=== PATIENT | female | born 1990 | race Caucasian/White ===

== ENCOUNTER → 2018-08-30 | Outpatient (CLI) | payer MEDICAID | LOC: OD 16:03 | PROVIDERS: ATTEND Nurse Practitioner Family | DX: N91.2 Amenorrhea, unspecified (principal) | CPT/HCPCS: 36415; 84702 ==

== ENCOUNTER 2018-11-03 05:14 | Emergency (ER) | payer BC, MEDICAID ==
[2018-11-03 06:22] LABS: A TYPE INFLUENZA AG NEGATIVE (NEGATIVE); B INFLUENZA AG NEGATIVE (NEGATIVE)
[2018-11-03] MEDS ORDERED: PENICILLIN G BENZATHINE 1.2 MILLION UNIT/2 ML DISP.SYRIN IM ONE (06:40)
--- NOTE | 2018-11-03 06:43 | RADIOLOGY REPORT (SQ) ---
EXAM DESCRIPTION: X-ray two view chest. CLINICAL HISTORY: 28 years Female, chest tightness COMPARISON: None TECHNIQUE: PA and Lateral views of the chest performed on 11/03/2018 at 6:30 AM FINDINGS: The lungs are well expanded and are grossly clear. There is a vague parenchymal opacity projecting over the posterior left ninth rib. This may be artifactual in nature and may be related to a confluence of shadows. The costophrenic sulci are clear. There is no evidence of a pneumothorax. The cardiac silhouette is normal in size. The mediastinal contours are normal. No acute osseous abnormalities are identified. No focal soft tissue abnormalities are identified. IMPRESSION: 1. No definite acute intrathoracic disease. 2. Vague small parenchymal opacity projecting over the posterior left ninth rib possibly artifactual in nature related to a confluence of shadows. A nonemergent CT chest without contrast is recommended for confirmation.
[2018-11-03] MEDS ORDERED: IBUPROFEN 800 MG TABLET PO ONE (06:45)
--- NOTE | 2018-11-03 06:52 | ER Document Report ---
HPI - HPI Patient complains to provider of: sore throat Time Seen by Provider: 11/03/18 06:41 Pain Level: 3 Context: Patient is a 28-year-old female presents to the emergency department for generalized sore throat and body aches for the last 3 days. Patient is also complaining of a subjective fever at home. Patient is also complaining of a cough and congestion. Patient denies any nausea, vomiting, diarrhea Past medical history: None Medications: None Allergies: None - CONSTITUTIONAL Constitutional: REPORTS: Chills - EENT EENT: REPORTS: Sore Throat - NEURO Neurology: REPORTS: Headache - CARDIOVASCULAR Cardiovascular: REPORTS: Chest pain - tightness - REPRODUCTIVE Reproductive: DENIES: : Past Medical History - General Information source: Patient - Social History Smoking Status: Never Smoker Chew tobacco use (# tins/day): No Frequency of alcohol use: Occasional Drug Abuse: None Family History: Reviewed & Not Pertinent Patient has suicidal ideation: No Patient has homicidal ideation: No Renal/ Medical History: Denies: Hx Peritoneal Dialysis Vertical Provider Document - CONSTITUTIONAL Agree With Documented VS: Yes Notes: GENERAL: Alert, interacts well. No acute distress. HEAD: Normocephalic, atraumatic. EYES: Pupils equal, round, and reactive to light. Extraocular movements intact. ENT: Oral mucosa moist, tongue midline. Nares patent, TM's intact, nonerythematous, nonbulging bilaterally. Pharynx erythematous, tonsils +2 bilaterally no exudate or palatal petechiae noted NECK: Full range of motion. Supple. Trachea midline. No lymphadenopathy appreciated LUNGS: Clear to auscultation bilaterally, no wheezes, rales, or rhonchi. No respiratory distress. HEART: Regular rate and rhythm. No murmur ABDOMEN: Soft, non-tender. Non-distended. Bowel sounds present in all 4 quadrants. EXTREMITIES: Moves all 4 extremities spontaneously. No edema, normal radial and dorsalis pedis pulses bilaterally. No cyanosis. BACK: no cervical, thoracic, lumbar midline tenderness. No saddle anesthesia, normal distal neurovascular exam. NEUROLOGICAL: Alert and oriented x3. Normal speech. cranial nerves II through XII grossly intact PSYCH: Normal affect, normal mood. SKIN: Warm, dry, normal turgor. No rashes or lesions noted. - INFECTION CONTROL TRAVEL OUTSIDE OF THE [place] IN LAST 30 DAYS: No Course - Re-evaluation Re-evalutation: 11/03/18 06:52 Patient's rapid strep came back positive. Patient was treated with Bicillin in the emergency department. Patient is stable for discharge. - Vital Signs Vital signs: Temp Pulse Resp BP Pulse Ox 98.5 F 97 15 125/75 99 11/03/18 05:19 11/03/18 05:19 11/03/18 05:19 11/03/18 05:19 11/03/18 05:19 Discharge - Discharge Clinical Impression: Strep pharyngitis Condition: Stable Disposition: HOME, SELF-CARE Instructions: Strep Throat ([facility]) Additional Instructions: As we discussed you have been seen and treated in the emergency department for strep throat. You are treated with antibiotics. You do not need any prescription for antibiotics as the antibiotics we gave you in the emergency department are enough. Please make sure you continue to take [id number] Tylenol and Motrin for your generalized body aches, sore throat and fevers. Please follow-up with your primary care provider in the next 24-48 hours. Please return to the emergency room for any other concerning symptoms. Forms: Return to Work Referrals: MAREK MORALES FNP-C [Primary Care Provider] - Follow up as needed
[2018-11-03 07:16] VITALS: BP 110/65
== END 2018-11-03 07:16 | disposition home or self-care (01) ==
LOC: ER 05:14
DX: J02.0 Streptococcal pharyngitis (principal); M79.10 Myalgia, unspecified site; R50.9 Fever, unspecified; R51 Headache
CPT/HCPCS: 99283; 96372; 87880; 87804; 71046; J0561